=== PATIENT | male | born 1940 | race Caucasian/White ===

== ENCOUNTER → 2020-02-01 | Outpatient (CLI) | payer MEDICARE, OTHER ==
--- NOTE | 2020-02-02 12:19 | RADIOLOGY REPORT (SQ) ---
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 TECHNIQUE: Multiple real-time grayscale sonographic images were obtained for evaluation of the right and left lower extremity. Doppler and duplex evaluation of the venous structures was performed. LIMITATIONS: None. FINDINGS: The right and left common femoral, superficial femoral, popliteal and infrapopliteal veins are patent with normal response to compression and augmentation maneuvers. Right greater saphenous vein: There is significant reflux in the middle and distal GSV in the thigh w ith reflux times of greater than 1,000 milliseconds. Right small saphenous vein: No reflux. Left greater saphenous vein: There is significant reflux in the proximal and middle GSV in the thigh with reflux times of 939 and 797 milliseconds respectively. Left small saphenous vein: No reflux. OTHER: Subcutaneous edema. IMPRESSION: 1. Significant reflux in the middle and distal right GSV in the thigh with reflux times of greater than 1,000 milliseconds. 2. Significant reflux in the proximal and middle left GSV in the thigh with reflux times of 939 and 797 milliseconds respectively. TECHNICAL DOCUMENTATION: JOB ID: [id number] 2010 [employer]- All Rights Reserved Reading location - IP/workstation name: [email or web address]
== END ==
LOC: SP 13:49
PROVIDERS: ATTEND Nurse Practitioner Family
DX: L97.212 Non-pressure chronic ulcer of right calf with fat layer exposed (principal)
CPT/HCPCS: 93970